=== PATIENT | male | born 1995 | race Caucasian/White ===

== ENCOUNTER 2018-10-16 08:33 | Emergency (ER) | payer SELFPAY ==
[2018-10-16 08:56] VITALS: BP 126/68
[2018-10-16] MEDS ORDERED: Ondansetron ODT TAB* 4 MG PO ONE (09:15)
--- NOTE | 2018-10-16 09:19 | UC ---
Nausea/Vomiting/Diarrhea HPI - HPI Summary HPI Summary: 23-year-old male comes in with a chief complaint of nausea vomiting diarrhea. 3 days ago patient started with some nausea. He then proceeded to vomiting. Then he started having diarrhea. The vomiting has improved although he still nauseous. Continues to have multiple episodes of diarrhea. Does feel somewhat tired and weak. Has intermittent cramping abdominal pain. Usually the pain gets worse and either vomits or has diarrhea and then the pain decreases. He has no focal area of pain. No fevers. No difficulties with urination. Stools been watery has not seen any blood in the stools. No recent antibiotics no recent travel. He can't think of anything specifically by the cause of this. - History of Current Complaint Chief Complaint: UCGI Stated Complaint: NAUSEA,GALINDO,STOMACHE ACHE,VOMITTING,DIARRHEA Time Seen by Provider: 10/16/18 09:00 Pain Intensity: 0 - Allergies/Home Medications Allergies/Adverse Reactions: Allergies Allergy/AdvReac Type Severity Reaction Status Date / Time No Known Allergies Allergy Verified 10/16/18 08:56 Home Medications: Home Medications Acetaminophen [Tylenol] 1 tab PO ONCE 10/16/18 [History Confirmed 10/16/18] PMH/Surg Hx/FS Hx/Imm Hx Previously Healthy: Yes - Surgical History Surgical History: Yes Surgery Procedure, Year, and Place: Carpal tunnel L wrist - Family History Known Family History: Positive: Non-Contributory - Social History Alcohol Use: Occasionally Substance Use Type: None Smoking Status (MU): Current Every Day Smoker Type: eCigarettes Review of Systems All Other Systems Reviewed And Are Negative: Yes Constitutional: Positive: Other - SEE HPI Skin: Positive: Negative Eyes: Positive: Negative ENT: Positive: Negative Respiratory: Positive: Negative Cardiovascular: Positive: Negative Gastrointestinal: Positive: Abdominal Pain, Vomiting, Diarrhea, Nausea, Other - SEE HPI Genitourinary: Positive: Negative Motor: Positive: Negative Neurovascular: Positive: Negative Musculoskeletal: Positive: Negative Neurological: Positive: Negative Psychological: Positive: Negative Is Patient Immunocompromised?: No Physical Exam Triage Information Reviewed: Yes Appearance: Well-Appearing, No Pain Distress, Well-Nourished Vital Signs: Initial Vital Signs Temp 98 F 10/16/18 08:53 Pulse 53 10/16/18 08:53 Resp 18 10/16/18 08:53 BP 126/68 10/16/18 08:53 Pulse Ox 98 10/16/18 08:53 Vital Signs Reviewed: Yes Eye Exam: Normal Eyes: Positive: Conjunctiva Clear ENT: Positive: Pharynx normal Neck: Positive: Supple Respiratory: Positive: Lungs clear, Normal breath sounds, No respiratory distress, No accessory muscle use Cardiovascular: Positive: RRR Abdomen Description: Positive: Soft, Other: - MILD LUQ TENDERNESS. NO REBOUND Bowel Sounds: Positive: Present Musculoskeletal: Positive: Strength Intact, ROM Intact Neurological Exam: Normal Neurological: Positive: Alert, Muscle Tone Normal Psychological Exam: Normal Psychological: Positive: Age Appropriate Behavior Skin Exam: Normal Naus/Vom/Diarrhea Course/Dx - Course Course Of Treatment: I sent a prescription for Zofran. Patient also went home with a stool sample kit. At this time there is no focal abdominal pain. No fevers. No recent antibiotic use. no blood in the stool. I let the patient know that if he gets worse with any focal pain fevers feels ill blood in his stools feels like passing out he needs to get reevaluated again right away. . - Differential Dx/Diagnosis Provider Diagnosis: Nausea vomiting and diarrhea Condition At Discharge: Stable Discharge - Sign-Out/Discharge Documenting (check all that apply): Patient Departure All imaging exams completed and their final reports reviewed: No Studies - Discharge Plan Condition: Stable Disposition: HOME Prescriptions: Ondansetron ODT TAB* [Zofran 4 MG Odt TAB*] 4 mg PO Q6H PRN #10 tab.odt PRN Reason: Nausea Patient Education Materials: Acute Nausea and Vomiting (ED), Acute Diarrhea (ED ) Forms: *Work Release Referrals: Sin Garcia MD [Primary Care Provider] - Additional Instructions: FOLLOW UP WITH YOUR DOCTOR IF NOT COMPLETELY IMPROVED. GET RECHECKED SOONER IF YOUR CONDITION WORSENS; PAIN, FEVER, BLOOD IN YOUR STOOL , YOU FEEL LIKE PASSING OUT, YOU FEEL ILL OR ANY QUESTIONS OR CONCERNS. - Billing Disposition and Condition Condition: STABLE Disposition: Home
== END 2018-10-16 09:31 | disposition home or self-care (01) ==
LOC: UCCORT 08:33
DX: R11.2 Nausea with vomiting, unspecified (principal); R19.7 Diarrhea, unspecified; F17.210 Nicotine dependence, cigarettes, uncomplicated
CPT/HCPCS: 83630; 87045; 87046; 87328; 87329; 87899; 99202; A9270-GY; G0463